=== PATIENT | male | born 1960 | race Caucasian/White ===

== ENCOUNTER → 2024-12-14 12:36 | Outpatient (REF) | payer OTHER, SELFPAY ==
--- NOTE | 2024-12-14 14:54 | CARDSERVLU ---
Echocardiogram with Lumason completed after protocol screening completed. Allergies verified.
Patent IV site: __left AC___
IV site flushed with 0.9% NaCl pre and post administration.
Diluted bolus method utilized to enhance visualization of ventricular sheppard.
Total volume given: ___3.0_ mL
Patient tolerated all procedures well without complications.
== END ==
LOC: RCS 12:36
PROVIDERS: ATTENDING PHYSICIAN Internal Medicine; FAMILY PHYSICIAN Family Medicine
DX: I25.10 Atherosclerotic heart disease of native coronary artery without angina pectoris (principal); I45.10 Unspecified right bundle-branch block; R60.9 Edema, unspecified; R06.09 Other forms of dyspnea
CPT/HCPCS: 93306; Q9950